=== PATIENT | male | born 1975 | race African-American/Black ===

== ENCOUNTER 2016-05-05 00:26 | Emergency (ER) | payer MEDICARE, OTHER ==
[~2016-05-05] VITALS: Ht 177.8 cm; Wt 168.3 kg
[2016-05-05] MEDS ORDERED: OLANZAPINE 5 MG TABLET ONE (00:51)
[2016-05-05] MEDS ORDERED: OLANZAPINE 5 MG/TAB.RAPDIS PO ONE (01:00)
[2016-05-05 01:24] LABS: BASOPHILS # (AUTO) 0.1 /CMM (0.0-0.2); BASOPHILS % (AUTO) 0.5 % (0.0-2.0); DIFF TOTAL % 100 %; EOSINOPHILS # (AUTO) 0.6 /CMM (0.0-0.7); EOSINOPHILS % (AUTO) 4.7 % (0.0-6.0); HEMATOCRIT 45 % (39-51); HEMOGLOBIN 14.4 g/dL (13.5-17.5); LYMPHOCYTES # (AUTO) 1.7 /CMM (0.8-4.8); LYMPHOCYTES % (AUTO) 14.1 % (20.0-44.0); MEAN CORPUSCULAR HEMOGLOBIN 26 PG (26.0-33.0); MEAN CORPUSCULAR HGB CONC 32 g/dl (31.0-36.0); MEAN CORPUSCULAR VOLUME 81 fL (80-96); MONOCYTES # (AUTO) 0.9 /CMM (0.1-1.30); MONOCYTES % (AUTO) 7.8 % (2.0-12.0); NEUTROPHILS # (AUTO) 8.6 /CMM (1.8-8.9); NEUTROPHILS % (AUTO) 72.9 % (43.0-81.0); PLATELET COUNT (AUTO) 201 /CMM (150-450); RED BLOOD CELL COUNT(AUTO) 5.59 MIL/uL (4.5-6.0); WHITE BLOOD COUNT (AUTO) 11.8 K/uL (4.3-11.0)
[2016-05-05 01:37] LABS: ANION GAP 12 (5-14); CALCIUM, SERUM 8.6 mg/dL (8.5-10.1); CARBON DIOXIDE 30 mmol/L (21-32); CHLORIDE 107 mmol/L (98-107); CREATININE 1.2 mg/dL (0.6-1.3); GFR 82 mL/min (>60); GLUCOSE 144 mg/dL (74-106); POTASSIUM 4.2 mmol/L (3.5-5.1); SODIUM SERUM 145 mmol/L (136-145); UREA NITROGEN, BLOOD 12 mg/dL (7-18)
[2016-05-05 01:43] LABS: ALANINE AMINOTRANSFERASE 28 U/L (12-78); ALBUMIN 3.6 g/dL (3.4-5.0); ASPARTATE AMINOTRANSFERASE 12 U/L (15-37); BILIRUBIN,DIRECT 0.1 mg/dL (0.0-0.2); BILIRUBIN,TOTAL 0.4 mg/dL (0.2-1.0); INDIRECT BILIRUBIN 0.3 mg/dL (0.0-1.1); TOTAL PROTEIN, SERUM 7.5 g/dL (6.4-8.2)
[2016-05-05 01:49] LABS: ACETAMINOPHEN 0 ug/ml (10-30); SALICYLATE 0.8 mg/dL (2.8-20.0)
[2016-05-05 06:01] VITALS: BP 138/74
[2016-05-05 10:13] LABS: ADD UA MICROSCOPIC NO; KETONES,URINE Negative (NEGATIVE); LEUKOCYTE ESTERASE ,URINE Negative (NEGATIVE)
[2016-05-05 10:33] LABS: CANNABINOID, URINE NEGATIVE (NEGATIVE); PHENCYCLIDINE SCREEN,URINE NEGATIVE (NEGATIVE)
== END 2016-05-05 11:38 | disposition home or self-care (01) ==
LOC: ER 00:28
DX: F20.9 Schizophrenia, unspecified (principal); R45.851 Suicidal ideations; Z91.14 Patient's other noncompliance with medication regimen; I10 Essential (primary) hypertension; J45.909 Unspecified asthma, uncomplicated
CPT/HCPCS: 36415; 80048; 80076; 80305; 80329; 81001; 85025; 99284; A4606; G0480 ×2; 81000-TC; G6039-TC; Z7610

== ENCOUNTER 2016-06-10 01:04 | Emergency (ER) | payer MEDICARE, OTHER ==
[~2016-06-10] VITALS: Ht 180.3 cm; Wt 163.7 kg
[2016-06-10] MEDS ORDERED: diphenhydrAMINE HCL 25 MG CAPSULE ONE (01:32)
[2016-06-10] MEDS ORDERED: OLANZAPINE 5 MG/TAB.RAPDIS ONE (01:33)
[2016-06-10] MEDS ORDERED: HALOPERIDOL 1 MG TABLET ONE (01:33)
[2016-06-10] MEDS ORDERED: METO25TA6 PO (01:42)
[2016-06-10] MEDS ORDERED: HALO5TAB PO (01:42)
[2016-06-10] MEDS ORDERED: LOPE-156 PO (01:42)
[2016-06-10] MEDS ORDERED: BENA20TA2 PO (01:42)
[2016-06-10] MEDS ORDERED: ZIPR60CA2 PO (01:42)
[2016-06-10] MEDS ORDERED: CIPR-262 PO (01:42)
[2016-06-10 01:59] LABS: BILIRUBIN,URINE NEGATIVE (NEGATIVE); BLOOD, URINE NEGATIVE Ery/uL (NEGATIVE); COLOR,URINE YELLOW (YELLOW); KETONES,URINE NEGATIVE (NEGATIVE); LEUKOCYTE ESTERASE ,URINE NEGATIVE (NEGATIVE); NITRITE, URINE NEGATIVE (NEGATIVE); PROTEIN,URINE 1+ mg/dl (NEGATIVE); UGLUCOSE NEGATIVE (NEGATIVE); UROBILINOGEN,URINE 0.2 EU/dL (0.2)
[2016-06-10] MEDS ORDERED: OLANZAPINE 5 MG/TAB.RAPDIS PO ONE (02:00)
[2016-06-10] MEDS ORDERED: diphenhydrAMINE HCL 25 MG CAPSULE PO ONE (02:00)
[2016-06-10] MEDS ORDERED: HALOPERIDOL 1 MG TABLET PO ONE (02:00)
[2016-06-10 02:01] LABS: BASOPHILS # (AUTO) 0.1 /CMM (0.0-0.2); BASOPHILS % (AUTO) 0.6 % (0.0-2.0); EOSINOPHILS # (AUTO) 0.4 /CMM (0.0-0.7); EOSINOPHILS % (AUTO) 4.2 % (0.0-6.0); HEMATOCRIT 42 % (39-51); HEMOGLOBIN 13.8 g/dL (13.5-17.5); LYMPHOCYTES # (AUTO) 2.7 /CMM (0.8-4.8); LYMPHOCYTES % (AUTO) 25.9 % (20.0-44.0); MEAN CORPUSCULAR HEMOGLOBIN 26 PG (26.0-33.0); MEAN CORPUSCULAR HGB CONC 33 g/dl (31.0-36.0); MEAN CORPUSCULAR VOLUME 79 fL (80-96); MONOCYTES # (AUTO) 1.8 /CMM (0.1-1.30); MONOCYTES % (AUTO) 17.3 % (2.0-12.0); NEUTROPHILS # (AUTO) 5.4 /CMM (1.8-8.9); PLATELET COUNT (AUTO) 212 /CMM (150-450); RDW COEFFICIENT OF VARIATION 14.1 (11.5-15.0); RED BLOOD CELL COUNT(AUTO) 5.37 MIL/uL (4.5-6.0); WHITE BLOOD COUNT (AUTO) 10.4 K/uL (4.3-11.0)
[2016-06-10 02:02] LABS: APPEARANCE,URINE HAZY (CLEAR)
[2016-06-10 02:04] LABS: CARBON DIOXIDE 27 mmol/L (21-32); CHLORIDE 103 mmol/L (98-107); POTASSIUM 3.4 mmol/L (3.5-5.1); SODIUM SERUM 140 mmol/L (136-145)
[2016-06-10 02:05] LABS: CANNABINOID, URINE NEGATIVE (NEGATIVE)
[2016-06-10 02:07] LABS: RBC,URINE 0-2 /HPF (0-2); WBC,URINE 0-2 /HPF (0-3)
[2016-06-10 02:08] LABS: ADD URINE CULTURE NO; BACTERIA,URINE None seen /HPF (None Seen); MUCUS,URINE Moderate /LPF (None Seen); SQUAMOUS EPITHELIAL CELL,UR Rare /HPF (None Seen)
[2016-06-10 02:09] LABS: ALANINE AMINOTRANSFERASE 46 U/L (12-78); ALBUMIN 3.5 g/dL (3.4-5.0); ALKALINE PHOSPHATASE 104 U/L (46-116); ASPARTATE AMINOTRANSFERASE 22 U/L (15-37); BILIRUBIN,DIRECT 0.1 mg/dL (0.0-0.2); BILIRUBIN,TOTAL 0.4 mg/dL (0.2-1.0); CREATININE 1.1 mg/dL (0.6-1.3); GFR 90 mL/min (>60); GLUCOSE 110 mg/dL (74-106); UREA NITROGEN, BLOOD 7 mg/dL (7-18)
[2016-06-10 02:10] LABS: ACETAMINOPHEN 0 ug/ml (10-30); ALCOHOL, BLOOD < 3 mg/dL (0-0); SALICYLATE 1.2 mg/dL (2.8-20.0)
[2016-06-10 02:13] LABS: PHENCYCLIDINE SCREEN,URINE NEGATIVE (NEGATIVE)
[2016-06-10 02:20] LABS: TOTAL PROTEIN, SERUM 7.4 g/dL (6.4-8.2)
[2016-06-10 02:37] LABS: EOSINOPHILS % (MANUAL) 2 % (0-4); LYMPHOCYTES % (MANUAL) 28 % (16-48); MONOCYTES % (MANUAL) 9 % (0-11.0); NEUTROPHILS % (MANUAL) 59 (42-76); REACTIVE LYMPHOCYTES 2 % (0-0)
[2016-06-10 02:38] LABS: PLATELET ESTIMATE ADEQUATE
[2016-06-10 05:47] VITALS: BP 146/76
--- NOTE | 2016-06-10 05:48 | NUR ---
Patient discharged to home in stable condition. Written and verbal after care instructions given. Patient verbalizes understanding of instruction. Pt ambulatory with a steady gait. VSS, NAD noted on DC. Pt given lab work for voluntary admission at [facility] Ronni Castrejon.
== END 2016-06-10 05:50 | disposition home or self-care (01) ==
LOC: ER 01:04
DX: F20.9 Schizophrenia, unspecified (principal); Z91.19 Patient's noncompliance with other medical treatment and regimen; I10 Essential (primary) hypertension; J45.909 Unspecified asthma, uncomplicated; F31.9 Bipolar disorder, unspecified; Z88.8 Allergy status to other drugs, medicaments and biological substances
CPT/HCPCS: 36415; 80048; 80076; 80305; 80329; 81001; 85025; 99284; A4606; G0480 ×2; Q0163; 81000-TC; G6039-TC; Z7610

== ENCOUNTER 2016-09-01 05:34 | Emergency (ER) | payer MEDICARE, OTHER ==
[~2016-09-01] VITALS: Ht 177.8 cm; Wt 117.9 kg
[~2016-09-01 05:34] MED LIST: BENA20TA2 PO; CIPR-262 PO; HALO5TAB PO; LOPE-156 PO; METO25TA6 PO; ZIPR60CA2 PO
--- NOTE | 2016-09-01 05:47 | NUR ---
PT BIBSELF, AMBULATORY TO ER BED 6 PT C/O THE VOICES ARE TELLING HIM TO JUMP INFRONT OF TRAFFIC BUT PT DENIES WANTING TO HURT HIMESELF OR OTHERS. PT AOX4 RR EVEN AND UNLABORED. NO SOB NOTED. NAD NOTED. NO NVD AT THIS TIME. PT GOWNED AND PLACED ON MONITOR. DR BALDWIN AT BEDSIDE FOR EVAL.
[2016-09-01] MEDS ORDERED: OLANZAPINE 5 MG TABLET ONE (05:48)
[2016-09-01] MEDS ORDERED: chlorproMAZINE HCL 25 MG TABLET ONE (05:49)
[2016-09-01] MEDS ORDERED: chlorproMAZINE HCL 25 MG TABLET PO ONE (06:00)
[2016-09-01] MEDS ORDERED: OLANZAPINE 5 MG TABLET PO ONE (06:00)
--- NOTE | 2016-09-01 06:12 | NUR ---
URINE COLLECTED. SENT TO LAB.
--- NOTE | 2016-09-01 06:15 | NUR ---
LAB AT BEDSIDE FOR BLOOD DRAW
--- NOTE | 2016-09-01 06:27 | NUR ---
PT REFUSED VS AT THIS TIME. RISK AND BENEFITS EXPLAINED X3. PT STRONGLY REFUSED.
[2016-09-01 06:32] LABS: BASOPHILS % (AUTO) 0.3 % (0.0-2.0); EOSINOPHILS # (AUTO) 0.2 /CMM (0.0-0.7); EOSINOPHILS % (AUTO) 2.3 % (0.0-6.0); HEMATOCRIT 43 % (39-51); HEMOGLOBIN 13.7 g/dL (13.5-17.5); LYMPHOCYTES # (AUTO) 1.9 /CMM (0.8-4.8); LYMPHOCYTES % (AUTO) 19.3 % (20.0-44.0); MEAN CORPUSCULAR HEMOGLOBIN 26 PG (26.0-33.0); MEAN CORPUSCULAR HGB CONC 32 g/dl (31.0-36.0); MEAN CORPUSCULAR VOLUME 81 fL (80-96); MONOCYTES # (AUTO) 0.7 /CMM (0.1-1.30); MONOCYTES % (AUTO) 6.7 % (2.0-12.0); NEUTROPHILS # (AUTO) 7.2 /CMM (1.8-8.9); NEUTROPHILS % (AUTO) 71.4 % (43.0-81.0); PLATELET COUNT (AUTO) 202 /CMM (150-450); RDW COEFFICIENT OF VARIATION 14.9 (11.5-15.0); RED BLOOD CELL COUNT(AUTO) 5.24 MIL/uL (4.5-6.0); WHITE BLOOD COUNT (AUTO) 10.1 K/uL (4.3-11.0)
[2016-09-01 06:44] LABS: CALCIUM, SERUM 8.4 mg/dL (8.5-10.1); CARBON DIOXIDE 31 mmol/L (21-32); CHLORIDE 107 mmol/L (98-107); CREATININE 1.2 mg/dL (0.6-1.3); GLUCOSE 118 mg/dL (74-106); SODIUM SERUM 142 mmol/L (136-145); UREA NITROGEN, BLOOD 11 mg/dL (7-18)
[2016-09-01 06:50] LABS: ACETAMINOPHEN 0 ug/ml (10-30); ALANINE AMINOTRANSFERASE 28 U/L (12-78); ALBUMIN 3.6 g/dL (3.4-5.0); ALCOHOL, BLOOD < 3 mg/dL (0-0); ALKALINE PHOSPHATASE 116 U/L (46-116); ASPARTATE AMINOTRANSFERASE 17 U/L (15-37); BILIRUBIN,DIRECT 0.1 mg/dL (0.0-0.2); BILIRUBIN,TOTAL 0.6 mg/dL (0.2-1.0); SALICYLATE 0.7 mg/dL (2.8-20.0); TOTAL PROTEIN, SERUM 7.1 g/dL (6.4-8.2)
--- NOTE | 2016-09-01 07:31 | NUR ---
REPORT GIVEN TO ANDRE DICK FOR C.O.C
--- NOTE | 2016-09-01 08:30 | NUR ---
Patient is resting comfortably in bed with eyes closed. Easily aroused. VSS
--- NOTE | 2016-09-01 10:25 | NUR ---
Patient is resting comfortably in bed with eyes closed. Easily aroused. VSS
[2016-09-01 11:31] LABS: APPEARANCE,URINE Clear (CLEAR); BILIRUBIN,URINE Negative (NEGATIVE); BLOOD, URINE Negative Ery/uL (NEGATIVE); COLOR,URINE Yellow (YELLOW); KETONES,URINE Negative (NEGATIVE); LEUKOCYTE ESTERASE ,URINE Negative (NEGATIVE); NITRITE, URINE Negative (NEGATIVE); PROTEIN,URINE Negative (NEGATIVE); UGLUCOSE Negative (NEGATIVE); UROBILINOGEN,URINE 0.2 EU/dL (0.2)
--- NOTE | 2016-09-01 12:30 | NUR ---
DR FLANNERY AT BS FOR AN UPDATE AND RE-EVAL.
--- NOTE | 2016-09-01 12:40 | NUR ---
CALLED CLINICIAN FOR EVAL ETA 1 HOUR
--- NOTE | 2016-09-01 13:40 | NUR ---
CALLED FOR FOOD TRAY
--- NOTE | 2016-09-01 13:56 | NUR ---
psych base ply hand at bedside Martha Addendum: 09/01/16 at 2026 by SERGIO HEMANT CLOUD SOLUTIONS ARCHITECT RAPHAEL
--- NOTE | 2016-09-01 14:00 | NUR ---
Food tray served at .
--- NOTE | 2016-09-01 16:30 | NUR ---
Patient is resting comfortably in bed with eyes closed. Easily aroused. VSS
--- NOTE | 2016-09-01 17:30 | NUR ---
Patient is resting comfortably in bed with eyes closed. Easily aroused. VSS
--- NOTE | 2016-09-01 19:09 | NUR ---
report given to ANDRE Solorzano for EVA
--- NOTE | 2016-09-01 21:06 | NUR ---
pt ambulated to er restroom. nad noted, will continue to monitor
--- NOTE | 2016-09-01 22:03 | NUR ---
gave patient sandwich and water
--- NOTE | 2016-09-02 01:29 | NUR ---
pt resting in er bed, nad noted, skin warm and dry, will conitnue to monitor
[2016-09-02] MEDS ORDERED: OLANZAPINE 5 MG TABLET ONE (05:39)
[2016-09-02] MEDS ORDERED: OLANZAPINE 5 MG TABLET PO ONE (06:00)
[2016-09-02 06:05] VITALS: BP 134/85
== END 2016-09-02 06:05 | disposition home or self-care (01) ==
LOC: ER 05:35
DX: F20.9 Schizophrenia, unspecified (principal); I10 Essential (primary) hypertension; J45.909 Unspecified asthma, uncomplicated; Z88.8 Allergy status to other drugs, medicaments and biological substances; Z91.19 Patient's noncompliance with other medical treatment and regimen
CPT/HCPCS: 36415; 80048-TC; 80076-TC; 80305; 81000-TC; 85025-TC; A4606; G0480; Q0161; Z7610

== ENCOUNTER 2017-02-26 16:23 | Emergency (ER) | payer MEDICARE, OTHER ==
[~2017-02-26] VITALS: Ht 182.9 cm; Wt 136.1 kg
[2017-02-26 16:30] VITALS: BP 144/81
[2017-02-26 19:44] LABS: BASOPHILS % (AUTO) 0.4 % (0.0-2.0); EOSINOPHILS # (AUTO) 0.2 /CMM (0.0-0.7); EOSINOPHILS % (AUTO) 2.1 % (0.0-6.0); HEMATOCRIT 46 % (39-51); HEMOGLOBIN 15.4 g/dL (13.5-17.5); LYMPHOCYTES # (AUTO) 2.2 /CMM (0.8-4.8); LYMPHOCYTES % (AUTO) 20.1 % (20.0-44.0); MEAN CORPUSCULAR HEMOGLOBIN 27 PG (26.0-33.0); MEAN CORPUSCULAR HGB CONC 34 g/dl (31.0-36.0); MEAN CORPUSCULAR VOLUME 79 fL (80-96); MONOCYTES # (AUTO) 0.8 /CMM (0.1-1.30); MONOCYTES % (AUTO) 7.2 % (2.0-12.0); NEUTROPHILS % (AUTO) 70.2 % (43.0-81.0); PLATELET COUNT (AUTO) 255 /CMM (150-450); RDW COEFFICIENT OF VARIATION 13.6 (11.5-15.0); RED BLOOD CELL COUNT(AUTO) 5.76 MIL/uL (4.5-6.0); WHITE BLOOD COUNT (AUTO) 11.2 K/uL (4.3-11.0)
[2017-02-26 19:48] LABS: APPEARANCE,URINE Clear (CLEAR); BILIRUBIN,URINE Negative (NEGATIVE); BLOOD, URINE Negative Ery/uL (NEGATIVE); COLOR,URINE Yellow (YELLOW); KETONES,URINE Negative (NEGATIVE); LEUKOCYTE ESTERASE ,URINE Negative (NEGATIVE); NITRITE, URINE Negative (NEGATIVE); PH,URINE 5.5 (5.0-8.0); PROTEIN,URINE Negative (NEGATIVE); UGLUCOSE Negative (NEGATIVE); UROBILINOGEN,URINE 0.2 EU/dL (0.2)
[2017-02-26 19:59] LABS: ALANINE AMINOTRANSFERASE 27 U/L (12-78); ALBUMIN 4.2 g/dL (3.4-5.0); ALCOHOL, BLOOD 4 mg/dL (0-0); ALKALINE PHOSPHATASE 121 U/L (46-116); ASPARTATE AMINOTRANSFERASE 18 U/L (15-37); BILIRUBIN,DIRECT 0.2 mg/dL (0.0-0.2); CALCIUM, SERUM 8.9 mg/dL (8.5-10.1); CARBON DIOXIDE 26 mmol/L (21-32); CHLORIDE 101 mmol/L (98-107); CREATININE 1.2 mg/dL (0.6-1.3); GLUCOSE 109 mg/dL (74-106); SODIUM SERUM 136 mmol/L (136-145); TOTAL PROTEIN, SERUM 8.2 g/dL (6.4-8.2); UREA NITROGEN, BLOOD 11 mg/dL (7-18)
[2017-02-26 20:01] LABS: ACETAMINOPHEN < 2 ug/ml (10-30); SALICYLATE 2.5 mg/dL (2.8-20.0)
== END 2017-02-26 20:11 | disposition home or self-care (01) ==
LOC: ER 16:23
DX: Z02.89 Encounter for other administrative examinations (principal); F20.9 Schizophrenia, unspecified; H10.89 Other conjunctivitis; I10 Essential (primary) hypertension; J45.909 Unspecified asthma, uncomplicated; Z88.8 Allergy status to other drugs, medicaments and biological substances
CPT/HCPCS: 36415; 80048; 80076; 80305; 80329; 81001; 85025; 99284; A4606; G0480 ×2; 81000-TC; Z7610

== ENCOUNTER 2017-03-03 12:25 | Emergency (ER) | payer MEDICARE, OTHER ==
--- NOTE | 2017-03-03 12:35 | NUR ---
CALLED FOR TRIAGE, PT PHYSICALLY NOT IN WAITING ROOM
--- NOTE | 2017-03-03 12:45 | NUR ---
CALLED FOR TRIAGE, PT PHYSICALLY NOT IN WAITING ROOM
== END 2017-03-03 13:44 | disposition left against medical advice (07) ==
LOC: ER 12:27
DX: Z53.21 Procedure and treatment not carried out due to patient leaving prior to being seen by health care provider (principal)

== ENCOUNTER 2018-08-16 18:55 | Emergency (ER) | payer MEDICARE, OTHER ==
[~2018-08-16] VITALS: Ht 180.3 cm; Wt 180.5 kg
[~2018-08-16 18:55] MED LIST changes: -BENA20TA2 PO; +BENA20TA9 PO
--- NOTE | 2018-08-16 19:14 | NUR ---
[id number] FR [facility] C/O AUDITORY HALLUCINATIONS TO OD ON MEDS. PT HAS BEEN SEEN HERE BEFORE FOR SAME ISSUE. ON MONITOR AND MADE COMFORTABLE. READY FOR EVAL.
[2018-08-16 19:33] LABS: BASOPHILS # (AUTO) 0.1 /CMM (0.0-0.2); BASOPHILS % (AUTO) 0.5 % (0.0-2.0); EOSINOPHILS % (AUTO) 2.4 % (0.0-6.0); HEMATOCRIT 44 % (39-51); HEMOGLOBIN 14.4 g/dL (13.5-17.5); LYMPHOCYTES % (AUTO) 19.4 % (20.0-44.0); MEAN CORPUSCULAR HGB CONC 33 g/dl (31.0-36.0); MEAN CORPUSCULAR VOLUME 83 fL (80-96); MONOCYTES # (AUTO) 0.9 /CMM (0.1-1.30); MONOCYTES % (AUTO) 8.1 % (2.0-12.0); NEUTROPHILS # (AUTO) 7.3 /CMM (1.8-8.9); NEUTROPHILS % (AUTO) 69.6 % (43.0-81.0); PLATELET COUNT (AUTO) 186 /CMM (150-450); RED BLOOD CELL COUNT(AUTO) 5.32 MIL/uL (4.5-6.0); WHITE BLOOD COUNT (AUTO) 10.5 K/uL (4.3-11.0)
[2018-08-16 19:49] LABS: CALCIUM, SERUM 8.7 mg/dL (8.5-10.1); CARBON DIOXIDE 29 mmol/L (21-32); CHLORIDE 104 mmol/L (98-107); CREATININE 1.1 mg/dL (0.6-1.3); GLUCOSE 107 mg/dL (74-106); POTASSIUM 4.1 mmol/L (3.5-5.1); SODIUM SERUM 139 mmol/L (136-145); UREA NITROGEN, BLOOD 9 mg/dL (7-18)
[2018-08-16 20:05] LABS: ACETAMINOPHEN 0 ug/ml (10-30); ALANINE AMINOTRANSFERASE 36 U/L (12-78); ALBUMIN 3.6 g/dL (3.4-5.0); ALCOHOL, BLOOD < 3 mg/dL (0-0); ALKALINE PHOSPHATASE 114 U/L (46-116); ASPARTATE AMINOTRANSFERASE 19 U/L (15-37); BILIRUBIN,DIRECT 0.1 mg/dL (0.0-0.2); BILIRUBIN,TOTAL 0.6 mg/dL (0.2-1.0); SALICYLATE 2.7 mg/dL (2.8-20.0); TOTAL PROTEIN, SERUM 6.9 g/dL (6.4-8.2)
--- NOTE | 2018-08-16 21:00 | NUR ---
URINE COLLECTED AND SENT TO STAT LAB
[2018-08-16 21:20] LABS: APPEARANCE,URINE Clear (CLEAR); BILIRUBIN,URINE Negative (NEGATIVE); BLOOD, URINE Negative Ery/uL (NEGATIVE); COLOR,URINE Yellow (YELLOW); KETONES,URINE Negative (NEGATIVE); LEUKOCYTE ESTERASE ,URINE Negative (NEGATIVE); NITRITE, URINE Negative (NEGATIVE); PH,URINE 7.5 (5.0-8.0); PROTEIN,URINE Negative (NEGATIVE); UGLUCOSE Negative (NEGATIVE); UROBILINOGEN,URINE 0.2 EU/dL (0.2)
[2018-08-16 21:27] VITALS: BP 140/79
--- NOTE | 2018-08-16 21:41 | NUR ---
Patient is resting comfortably in bed with eyes closed. Easily aroused. VSS
--- NOTE | 2018-08-16 22:36 | NUR ---
RAPHAEL POWELL CRISIS TEAM AT BEDSIDE FOR EVAL.
--- NOTE | 2018-08-16 23:54 | NUR ---
[facility] ACCEPTED PT. DR HIDALGO IS ADMITTING. GIVE REPORT AT [phone]. ASK FOR THE UNIT THAT PT WILL BE GOING TO.
--- NOTE | 2018-08-16 23:59 | NUR ---
CALLED [facility] FOR A BLS TRANSPORT TO [facility]. [id number] MIN TRIP#[phone]
--- NOTE | 2018-08-17 | NUR ---
REPORT GIVEN TO ANDRE BERNAL AT [facility] FOR UNIT 2
--- NOTE | 2018-08-17 01:10 | NUR ---
PT REFUSED TRANSPORTATION TO [facility]. PT STATES "I'M ONLY GOING TO [place] OR [facility]". INFORMED PT BEDS ARE NOT AVAILABLE. PT ANGRY AND VERBALLY ABUSIVE TO STAFF. PT REQUESTING TO BEEN SEEN BY ELECTRICAL MANUFACTURING ENGINEER OR REEVALUATED BY CRISIS TEAM. AWARE.
--- NOTE | 2018-08-17 07:48 | NUR ---
PT VERBALLY ABUSIVE TO STAFF, REFUSES TO BE CONNECTED TO BP CUFF AND PULSE OX
--- NOTE | 2018-08-17 08:49 | NUR ---
OFFERED FOOD TRAY. PT VERBALLY ABUSIVE. REFUSES FOOD TRAY.
--- NOTE | 2018-08-17 10:13 | NUR ---
ROGERIO CALLED AT [facility],ACCEPTED LAST NIGHT BUT REFUSED TO GO THERE. HE WANTED TO GO TO [facility] BUT NO BED WAS AVAILABLE.
--- NOTE | 2018-08-17 10:16 | NUR ---
PATIENT CHANGED INTO HIS STREET CLOTHES, CARRIED HIS DUFFLE BAG WALKED OUT OF THE ER. ROGERIO, INTAKE AT [facility]. Addendum: 08/17/18 at 1018 by POLINA PATIENT CHANGED INTO HIS STREET CLOTHES, CARRIED HIS DUFFLE BAG WALKED OUT OF THE ER. ADAM, INTAKE AT [facility] INFORMED
== END 2018-08-17 10:20 | disposition home or self-care (01) ==
LOC: ER 19:00
DX: R45.851 Suicidal ideations (principal); J45.909 Unspecified asthma, uncomplicated; I10 Essential (primary) hypertension; Z88.8 Allergy status to other drugs, medicaments and biological substances; Z59.0 Homelessness; Z79.899 Other long term (current) drug therapy
CPT/HCPCS: 36415; 80048; 80076; 80305; 80307; 80329; 81001; 85025; 99284; G0480; 81000-TC

== ENCOUNTER 2018-08-17 20:13 | Emergency (ER) | payer OTHER ==
[~2018-08-17] VITALS: Ht 180.3 cm; Wt 217.7 kg
[2018-08-17 20:32] VITALS: BP 134/71
--- NOTE | 2018-08-17 20:50 | NUR ---
PT REFUSED BLOOD DRAW. PT STATED THAT HE IS NOT HERE FOR PSYCHIATRIC REASONS, BUT NEEDS A MEDICATION REFILL FOR FLOMAX.
--- NOTE | 2018-08-17 21:00 | NUR ---
Bryan MENSAH NP IS SPEAKING TO THE PT.
--- NOTE | 2018-08-17 21:01 | NUR ---
PT STATED THAT HE WAS HOMELESS AND REC'D SOCKS, HYGIENE SUPPLIES, ETC.
--- NOTE | 2018-08-17 21:07 | NUR ---
PT REC'D A SANDWICH AND JUICE
--- NOTE | 2018-08-17 21:28 | NUR ---
Patient discharged to home in stable condition. Written and verbal after care instructions given. Patient verbalizes understanding of instruction AND RX. PT AMBULATED OUT WITH HIS SHOPPING CART FULL OF [employer]. PT IS WAITING IN THE LOBBY FOR A TAP CARD. PT IS HOMELESS AND REC'D THE HOMELESS RESOURCE PACKAGE. PT IS REFUSING LONG-TERM PLACEMENT. VSS. NAD NOTED.
--- NOTE | 2018-08-17 22:05 | NUR ---
PT REC'D A TAP CARD.
== END 2018-08-17 22:05 | disposition home or self-care (01) ==
LOC: ER 20:13
DX: Z51.81 Encounter for therapeutic drug level monitoring (principal); N40.0 Benign prostatic hyperplasia without lower urinary tract symptoms; I10 Essential (primary) hypertension; F32.9 Major depressive disorder, single episode, unspecified; J45.909 Unspecified asthma, uncomplicated; F20.9 Schizophrenia, unspecified; Z59.0 Homelessness; Z88.8 Allergy status to other drugs, medicaments and biological substances

== ENCOUNTER 2018-08-18 08:46 | Emergency (ER) | payer OTHER ==
[~2018-08-18] VITALS: Ht 180.3 cm; Wt 179.2 kg
[2018-08-18 08:53] VITALS: BP 148/93
--- NOTE | 2018-08-18 08:53 | NUR ---
PT SELF PRESENTS TO ED. AMBULATORY W/ MULTIPLE COMPLAINTS. STATES HAVING SHORTNESS OF BREATH, UNKNOWN ONSET. SATTING 100% ON RA. ALSO C/O HEARING VOICES BUT STATING "IM NOT SUICIDAL." ROOMED TO ED BED 12. VSS. AWAITING ERMD EVAL.
--- NOTE | 2018-08-18 09:00 | NUR ---
DR CHRISTIANSON AT BEDSIDE FOR EVAL.
[2018-08-18 09:24] LABS: BASOPHILS % (AUTO) 0.4 % (0.0-2.0); EOSINOPHILS % (AUTO) 1.9 % (0.0-6.0); HEMATOCRIT 46 % (39-51); HEMOGLOBIN 15.2 g/dL (13.5-17.5); LYMPHOCYTES # (AUTO) 1.6 /CMM (0.8-4.8); LYMPHOCYTES % (AUTO) 15.2 % (20.0-44.0); MEAN CORPUSCULAR HGB CONC 33 g/dl (31.0-36.0); MEAN CORPUSCULAR VOLUME 84 fL (80-96); MONOCYTES # (AUTO) 0.7 /CMM (0.1-1.30); NEUTROPHILS # (AUTO) 7.8 /CMM (1.8-8.9); NEUTROPHILS % (AUTO) 75.5 % (43.0-81.0); PLATELET COUNT (AUTO) 201 /CMM (150-450); RED BLOOD CELL COUNT(AUTO) 5.53 MIL/uL (4.5-6.0); WHITE BLOOD COUNT (AUTO) 10.3 K/uL (4.3-11.0)
[2018-08-18 09:31] LABS: CARBON DIOXIDE 26 mmol/L (21-32); CHLORIDE 104 mmol/L (98-107); GLUCOSE 107 mg/dL (74-106); POTASSIUM 3.8 mmol/L (3.5-5.1); SODIUM SERUM 139 mmol/L (136-145); UREA NITROGEN, BLOOD 12 mg/dL (7-18)
[2018-08-18 09:43] LABS: ALANINE AMINOTRANSFERASE 34 U/L (12-78); ALBUMIN 3.9 g/dL (3.4-5.0); ALKALINE PHOSPHATASE 130 U/L (46-116); ASPARTATE AMINOTRANSFERASE 17 U/L (15-37); B-TYPE NATRIURETIC PEPTIDE 14 PG/ML (0-125); BILIRUBIN,DIRECT 0.1 mg/dL (0.0-0.2); BILIRUBIN,TOTAL 0.4 mg/dL (0.2-1.0); TOTAL PROTEIN, SERUM 7.4 g/dL (6.4-8.2)
--- NOTE | 2018-08-18 10:17 | NUR ---
CALLED RAPHAEL FOR PSYCH EVAL, LEFT A MESSAGE.
--- NOTE | 2018-08-18 11:36 | NUR ---
CALLED RAPHAEL FOR PSYCH EVAL, LEFT MESSAGE
--- NOTE | 2018-08-18 12:43 | NUR ---
PT ELOPED FROM EMERGENCY DEPT, DR CHRISTIANSON IS AWARE.
== END 2018-08-18 12:46 | disposition left against medical advice (07) ==
LOC: ER 08:48
DX: R06.02 Shortness of breath (principal); F23 Brief psychotic disorder; I10 Essential (primary) hypertension; J45.909 Unspecified asthma, uncomplicated; Z88.8 Allergy status to other drugs, medicaments and biological substances; Z79.899 Other long term (current) drug therapy
CPT/HCPCS: 36415; 71045-TC; 80048-TC; 80076-TC; 80305; 83880; 84484-TC; 85025-TC; 85730-TC

== ENCOUNTER 2018-08-18 23:47 | Emergency (ER) | payer OTHER ==
[~2018-08-18] VITALS: Ht 180.3 cm; Wt 181.4 kg
--- NOTE | 2018-08-19 00:42 | NUR ---
PT CALLED IN WAITING ROOM, PT STATES, "I DONT WANT TO COME IN, ILL COME BACK LATER."
--- NOTE | 2018-08-19 01:45 | NUR ---
BIB SELF. AAOX4. NO RESP DISTRESS NOTED. AMBULATORY. C/O SOB X 1 WEEK, BEEN USING INHALER BUT NO RELIEF. NO NOTED RESP DISTRESS UPON PRESENTATION AND ASSESSMENT. TO ER BED 14. AWAITING MD ORDERS.
[2018-08-19] MEDS ORDERED: ALBUTEROL FS 2.5 MG/3 ML VIAL.NEB ONE (01:56)
[2018-08-19] MEDS ORDERED: ALBUTEROL FS 2.5 MG/0.5 ML VIAL.NEB NEB ONE (02:00)
--- NOTE | 2018-08-19 02:00 | NUR ---
RT AT BEDSIDE FOR TX
[2018-08-19 04:44] VITALS: BP 147/78
--- NOTE | 2018-08-19 04:44 | NUR ---
Patient given written and verbal discharge instructions. Patient verbalizes understanding of instructions. Patient is ambulatory with steady gait. Refuses offer of snf placement. Patient given list of available shelters in surrounding area.
== END 2018-08-19 04:46 | disposition home or self-care (01) ==
LOC: ER 23:50
DX: R05 Cough (principal); I10 Essential (primary) hypertension; F20.9 Schizophrenia, unspecified; F17.200 Nicotine dependence, unspecified, uncomplicated; Z88.8 Allergy status to other drugs, medicaments and biological substances; Z79.899 Other long term (current) drug therapy
CPT/HCPCS: 71045-TC

== ENCOUNTER 2018-08-19 22:31 | Emergency (ER) | payer OTHER ==
[~2018-08-19] VITALS: Ht 180.3 cm; Wt 181.4 kg
--- NOTE | 2018-08-20 02:52 | NUR ---
PT BIBSELF C/O GENERALIZED BODY ACHES. PT ALSO C/O AUDITORY HALLUCINATIONS. DENIES SI/HI AT THIS TIME. PT HOMELESS AND REQUESTING TO BE SEEN BY COAGULATING OPERATOR. PT AAOX4. RESPIRATIONS EVEN AND UNLABORED. SKIN INTACT. ABLE TO AMBULATE WITH STEADY GAIT. NO ACUTE DISTRESS NOTED AT THIS TIME
--- NOTE | 2018-08-20 03:15 | NUR ---
DRY ICE MACHINE OPERATOR AT BEDSIDE FOR BLOOD DRAW
--- NOTE | 2018-08-20 03:30 | NUR ---
PT REFUSING BLOOD DRAW, MD AWARE. INFORMED PT HE WILL BE UNABLE TO BE EVALUATED BY CRISIS TEAM WITHOUT BLOOD WORK. PT BECAME UPSET AND VERBALLY AGGRESSIVE, PT STATES "I WANT TO GIVE MY VEINS A REST, LOOK AT MY BLOOD WORK FROM THE OTHER DAY". MD AT BEDSIDE AT EXPLAINED PT WILL BE DISCHARGED. PT AGREED TO BEING DISCHARGED. REFUSED ALL RESOURCES AND AFTER CARE INSTRUCTIONS
[2018-08-20 03:54] VITALS: BP 147/74
== END 2018-08-20 03:54 | disposition home or self-care (01) ==
LOC: ER 22:31
DX: F20.9 Schizophrenia, unspecified (principal); I10 Essential (primary) hypertension; J45.909 Unspecified asthma, uncomplicated; F17.200 Nicotine dependence, unspecified, uncomplicated; Z88.8 Allergy status to other drugs, medicaments and biological substances

== ENCOUNTER 2018-08-21 07:02 | Emergency (ER) | payer OTHER ==
[~2018-08-21] VITALS: Ht 180.3 cm; Wt 181.4 kg
--- NOTE | 2018-08-21 07:22 | NUR ---
C/C HEARING VOICES "THEY ARE TELLING ME IM DUMB". -SI, -HI. PT C/O BILAT FOOT SWELLING. PATIENT A/OX4, BREATHING EVEN AND UNLABORED, NO SOB NOTED. DENIES PAIN OR DISCOMFORT AT THIS TIME. REFUSED TO BE ATTACHED ON THE MONITOR. SAFETY PRECAUTION OBSERVED. NEEDS ATTENDED.
[2018-08-21] MEDS ORDERED: OLANZAPINE 5 MG TABLET ONE (07:25)
[2018-08-21] MEDS ORDERED: OLANZAPINE 5 MG TABLET PO ONE (07:30)
--- NOTE | 2018-08-21 07:41 | NUR ---
PATIENT REFUSED TO TAKE ZYPREXA AT THIS TIME. EXPLAINED RISKS AND BENEFITS. DR. COLORADO MADE AWARE.
[2018-08-21 08:00] LABS: BASOPHILS % (AUTO) 0.4 % (0.0-2.0); EOSINOPHILS % (AUTO) 2.9 % (0.0-6.0); HEMATOCRIT 45 % (39-51); HEMOGLOBIN 14.5 g/dL (13.5-17.5); LYMPHOCYTES # (AUTO) 1.6 /CMM (0.8-4.8); LYMPHOCYTES % (AUTO) 16.1 % (20.0-44.0); MEAN CORPUSCULAR HGB CONC 33 g/dl (31.0-36.0); MEAN CORPUSCULAR VOLUME 83 fL (80-96); MONOCYTES # (AUTO) 0.7 /CMM (0.1-1.30); MONOCYTES % (AUTO) 7.3 % (2.0-12.0); NEUTROPHILS # (AUTO) 7.4 /CMM (1.8-8.9); NEUTROPHILS % (AUTO) 73.3 % (43.0-81.0); PLATELET COUNT (AUTO) 194 /CMM (150-450); RED BLOOD CELL COUNT(AUTO) 5.37 MIL/uL (4.5-6.0); WHITE BLOOD COUNT (AUTO) 10.1 K/uL (4.3-11.0)
[2018-08-21 08:04] LABS: CALCIUM, SERUM 8.4 mg/dL (8.5-10.1); CARBON DIOXIDE 28 mmol/L (21-32); CHLORIDE 104 mmol/L (98-107); CREATININE 1.2 mg/dL (0.6-1.3); GLUCOSE 168 mg/dL (74-106); POTASSIUM 3.9 mmol/L (3.5-5.1); SODIUM SERUM 138 mmol/L (136-145); UREA NITROGEN, BLOOD 9 mg/dL (7-18)
[2018-08-21 08:10] LABS: ACETAMINOPHEN < 2 ug/ml (10-30); ALANINE AMINOTRANSFERASE 33 U/L (12-78); ALBUMIN 3.5 g/dL (3.4-5.0); ALCOHOL, BLOOD < 3 mg/dL (0-0); ALKALINE PHOSPHATASE 116 U/L (46-116); ASPARTATE AMINOTRANSFERASE 16 U/L (15-37); BILIRUBIN,DIRECT 0.1 mg/dL (0.0-0.2); BILIRUBIN,TOTAL 0.4 mg/dL (0.2-1.0); SALICYLATE 3.2 mg/dL (2.8-20.0); TOTAL PROTEIN, SERUM 6.8 g/dL (6.4-8.2)
--- NOTE | 2018-08-21 08:15 | NUR ---
CALLED [facility] [phone]
--- NOTE | 2018-08-21 09:32 | NUR ---
CALLED [facility] AGAIN, LEFT A VOICEMAIL
--- NOTE | 2018-08-21 11:55 | NUR ---
CRISIS SUPERVISOR PHOTOSTAT MARTHA SCHAFFER AT BEDSIDE
--- NOTE | 2018-08-21 11:59 | NUR ---
REFUSED TO SIGN HOMELESS WAIVER FORM
--- NOTE | 2018-08-21 13:07 | NUR ---
Rx provided. Patient discharged in stable condition. Written and verbal after care instructions given. Patient verbalizes understanding of instruction. Refused to sign homeless discharge waiver form, refused tap card and food.
[2018-08-21 13:08] VITALS: BP 136/80
== END 2018-08-21 13:08 | disposition home or self-care (01) ==
LOC: ER 07:02
DX: F20.9 Schizophrenia, unspecified (principal); I10 Essential (primary) hypertension; J45.909 Unspecified asthma, uncomplicated; F17.200 Nicotine dependence, unspecified, uncomplicated; Z88.8 Allergy status to other drugs, medicaments and biological substances; Z79.899 Other long term (current) drug therapy
CPT/HCPCS: 36415; 80048; 80076; 80307; 80329; 85025; 99284; G0480

== ENCOUNTER 2018-08-22 09:27 | Emergency (ER) | payer OTHER ==
[~2018-08-22] VITALS: Ht 180.3 cm; Wt 181.4 kg
[2018-08-22 09:44] VITALS: BP 139/73
--- NOTE | 2018-08-22 09:44 | NUR ---
PT BIB SELF C/O Hearing Voices "I hear chanting voices I am NOT suicidal-Here for psych EVAL, PT IS AAOX4, NOT IN RESPIRATORY DISTRESS, V/S STABLE, KEPT RESTED AND COMFORTABLE, WILL CONTINUE TO MONITOR.
--- NOTE | 2018-08-22 10:10 | NUR ---
URINE SPECIMEN COLLECTED AND SENT TO LAB.
--- NOTE | 2018-08-22 10:20 | NUR ---
SEEN AND EXAMINED BY DR. PEREZ.
--- NOTE | 2018-08-22 10:30 | NUR ---
ER PHLEB AT BEDSIDE FOR BLOOD DRAW.
[2018-08-22 10:36] LABS: BASOPHILS % (AUTO) 0.5 % (0.0-2.0); EOSINOPHILS % (AUTO) 3.3 % (0.0-6.0); HEMATOCRIT 44 % (39-51); HEMOGLOBIN 14.6 g/dL (13.5-17.5); LYMPHOCYTES # (AUTO) 1.8 /CMM (0.8-4.8); LYMPHOCYTES % (AUTO) 19.6 % (20.0-44.0); MEAN CORPUSCULAR HGB CONC 33 g/dl (31.0-36.0); MEAN CORPUSCULAR VOLUME 83 fL (80-96); MONOCYTES # (AUTO) 0.9 /CMM (0.1-1.30); MONOCYTES % (AUTO) 9.2 % (2.0-12.0); NEUTROPHILS # (AUTO) 6.3 /CMM (1.8-8.9); NEUTROPHILS % (AUTO) 67.4 % (43.0-81.0); PLATELET COUNT (AUTO) 193 /CMM (150-450); RED BLOOD CELL COUNT(AUTO) 5.31 MIL/uL (4.5-6.0); WHITE BLOOD COUNT (AUTO) 9.3 K/uL (4.3-11.0)
[2018-08-22 10:37] LABS: APPEARANCE,URINE Clear (CLEAR); BILIRUBIN,URINE Negative (NEGATIVE); BLOOD, URINE Negative Ery/uL (NEGATIVE); COLOR,URINE Light yellow (YELLOW); KETONES,URINE Negative (NEGATIVE); LEUKOCYTE ESTERASE ,URINE Negative (NEGATIVE); NITRITE, URINE Negative (NEGATIVE); PROTEIN,URINE Negative (NEGATIVE); UGLUCOSE Negative (NEGATIVE); UROBILINOGEN,URINE 0.2 EU/dL (0.2)
[2018-08-22 10:46] LABS: CARBON DIOXIDE 29 mmol/L (21-32); CHLORIDE 108 mmol/L (98-107); CREATININE 1.2 mg/dL (0.6-1.3); GLUCOSE 123 mg/dL (74-106); POTASSIUM 4.7 mmol/L (3.5-5.1); SODIUM SERUM 143 mmol/L (136-145); UREA NITROGEN, BLOOD 10 mg/dL (7-18)
[2018-08-22 10:52] LABS: ALANINE AMINOTRANSFERASE 35 U/L (12-78); ALBUMIN 3.6 g/dL (3.4-5.0); ALKALINE PHOSPHATASE 114 U/L (46-116); ASPARTATE AMINOTRANSFERASE 20 U/L (15-37); BILIRUBIN,DIRECT 0.1 mg/dL (0.0-0.2); BILIRUBIN,TOTAL 0.4 mg/dL (0.2-1.0); SALICYLATE 4.4 mg/dL (2.8-20.0); TOTAL PROTEIN, SERUM 6.9 g/dL (6.4-8.2)
[2018-08-22 10:55] LABS: ACETAMINOPHEN 0 ug/ml (10-30)
[2018-08-22 11:10] LABS: ALCOHOL, BLOOD < 3 mg/dL (0-0)
--- NOTE | 2018-08-22 11:28 | NUR ---
Patient eloped from facility. ER MD notified.
== END 2018-08-22 11:30 | disposition left against medical advice (07) ==
LOC: ER 09:31
DX: F23 Brief psychotic disorder (principal); I10 Essential (primary) hypertension; J45.909 Unspecified asthma, uncomplicated; F17.200 Nicotine dependence, unspecified, uncomplicated; Z88.8 Allergy status to other drugs, medicaments and biological substances; Z79.899 Other long term (current) drug therapy
CPT/HCPCS: 36415; 80048; 80076; 80305; 80307; 80329; 81001; 85025; 99284; G0480; 81000-TC

== ENCOUNTER 2018-08-23 01:46 | Emergency (ER) | payer OTHER | END 2018-08-23 02:17 | disposition left against medical advice (07) | LOC: ER 01:48 | DX: Z53.21 Procedure and treatment not carried out due to patient leaving prior to being seen by health care provider (principal) ==

== ENCOUNTER 2018-08-24 02:30 | Emergency (ER) | payer OTHER | END 2018-08-24 03:42 | disposition home or self-care (01) | LOC: ER 02:34 | DX: Z76.0 Encounter for issue of repeat prescription (principal); I10 Essential (primary) hypertension; J45.909 Unspecified asthma, uncomplicated; F20.9 Schizophrenia, unspecified; F17.200 Nicotine dependence, unspecified, uncomplicated; Z88.8 Allergy status to other drugs, medicaments and biological substances; Z79.82 Long term (current) use of aspirin ==

== ENCOUNTER 2018-08-25 13:12 | Emergency (ER) | payer OTHER ==
[~2018-08-25] VITALS: Ht 180.3 cm; Wt 181.9 kg
--- NOTE | 2018-08-25 15:13 | NUR ---
PT BIB RA 99 FROM A [facility]AS STATION WITH A C/O LT WRIST PAIN. PT IS AMBULATORY WITH A STEADY GAIT. NO DEFORMITY NOTED. RESP EVEN AND UNLABORED. PT IS HOMELESS.
--- NOTE | 2018-08-25 15:30 | NUR ---
PT REC'D A LUNCH TRAY AND IS TOLERATING PO WELL.
[2018-08-25 15:45] LABS: BASOPHILS # (AUTO) 0.1 /CMM (0.0-0.2); BASOPHILS % (AUTO) 0.6 % (0.0-2.0); EOSINOPHILS % (AUTO) 3.5 % (0.0-6.0); HEMATOCRIT 45 % (39-51); LYMPHOCYTES # (AUTO) 2.1 /CMM (0.8-4.8); LYMPHOCYTES % (AUTO) 20.8 % (20.0-44.0); MEAN CORPUSCULAR HGB CONC 33 g/dl (31.0-36.0); MEAN CORPUSCULAR VOLUME 83 fL (80-96); MONOCYTES # (AUTO) 0.9 /CMM (0.1-1.30); NEUTROPHILS # (AUTO) 6.5 /CMM (1.8-8.9); NEUTROPHILS % (AUTO) 66.1 % (43.0-81.0); PLATELET COUNT (AUTO) 184 /CMM (150-450); RED BLOOD CELL COUNT(AUTO) 5.44 MIL/uL (4.5-6.0); WHITE BLOOD COUNT (AUTO) 9.9 K/uL (4.3-11.0)
--- NOTE | 2018-08-25 15:53 | NUR ---
PT WAS SEEN BY [facility] LOW EMISSION AUTOMOBILE DESIGNER. HOMELESS WAIVER IS SIGNED AND IN THE CHART. PT REFUSED PLACEMENT IN A CARE HOME, BUT TOOK THE HOMELESS RESOURCE PACKAGE FROM [facility].
[2018-08-25 15:54] LABS: APPEARANCE,URINE Clear (CLEAR); BILIRUBIN,URINE Negative (NEGATIVE); BLOOD, URINE Trace-intact Ery/uL (NEGATIVE); COLOR,URINE Yellow (YELLOW); KETONES,URINE Negative (NEGATIVE); LEUKOCYTE ESTERASE ,URINE Negative (NEGATIVE); NITRITE, URINE Negative (NEGATIVE); PROTEIN,URINE Negative (NEGATIVE); UGLUCOSE Negative (NEGATIVE); UROBILINOGEN,URINE 0.2 EU/dL (0.2)
[2018-08-25 15:56] LABS: CALCIUM, SERUM 9.2 mg/dL (8.5-10.1); CARBON DIOXIDE 31 mmol/L (21-32); CHLORIDE 104 mmol/L (98-107); CREATININE 1.1 mg/dL (0.6-1.3); GLUCOSE 114 mg/dL (74-106); POTASSIUM 4.4 mmol/L (3.5-5.1); SODIUM SERUM 143 mmol/L (136-145); UREA NITROGEN, BLOOD 7 mg/dL (7-18)
--- NOTE | 2018-08-25 15:56 | NUR ---
Social service consult requested by ANDRE Brock due to pt. being homeless. Pt. is a 43 year old male who came to [facility] complaining of wrist pain. Pt. has been coming to [facility] more than seven times this month with some complaint or other. GILBERTO met with pt. bedside. Pt. is alert and oriented x 4. Pt. is obese and appears disheveled. Pt is ambulatory. Pt. has his shopping cart bedside. Pt. is sitting on his bed. Pt. appears manipulative. Pt. states he has been homeless for the past 5 years and has been going all over the [facility]. GILBERTO offered pt. retirement placement, however pt. declined. Pt. receives $1015 in [employer] monies per month and informed SW he is waiting to get his monthly check on August 31, 2018. GILBERTO asked pt. if he would like a referral to an independent living which costs $650. Pt. declined stating he has an independent living he can go to when he has his money. Pt. has history of Schizophrenia and has been hospitalized several times. Pt stated he has not been on his medications for the past 2 months and wants to see a psychiatrist. GILBERTO inquired with pt. if he has a psychiatrist out in the community. Pt. stated, " I don't." SW encouraged pt. to see a psychiatrist at [facility] and gave him referrals to [facility] and other mental health facilities. SW encouraged him to follow up with a psychiatrist at one of the clinics referred to him and not come to ED to see a psychiatrist unless it is an emergency. Pt. denies suicidal and homicidal ideations at this time and adamantly stated, " I am not going to say I am suicidal, I just want to speak with a psychiatrist." GILBERTO gave pt. the following homeless resources/mental health clinics/health clinics referrals that pt. accepted: [facility] located at [address] [facility] ; [place], [address], [place] ; [facility] [place], [address], [place] ; [facility] Homeless Resource Directory which includes food stamps, transitional housing, showers and hot meals etc; Mental Health clinics such as [facility], [id number] [place] [address], Ronni Castrejon. [facility] ; [facility] ; Health clinics;[facility] and Alcohol treatment centers such as [facility], ; [facility] Substance Abuse Hotline and [facility] . Homeless waiver form was signed by the pt. and placed pt's chart. GILBERTO updated ANDRE Brock regarding pt's discharge plan.
--- NOTE | 2018-08-25 16:00 | NUR ---
PT DENIES SI OR HI AT THIS TIME.
--- NOTE | 2018-08-25 16:00 | NUR ---
PT STATED: "I'M NOT GOING TO SAY I'M SUICIDAL. I HAVE CHANTING VOICES THAT ARE BOTHERING ME."
[2018-08-25 16:03] LABS: ALANINE AMINOTRANSFERASE 39 U/L (12-78); ALBUMIN 3.6 g/dL (3.4-5.0); ALKALINE PHOSPHATASE 118 U/L (46-116); ASPARTATE AMINOTRANSFERASE 19 U/L (15-37); BILIRUBIN,DIRECT 0.1 mg/dL (0.0-0.2); BILIRUBIN,TOTAL 0.5 mg/dL (0.2-1.0); SALICYLATE 4.1 mg/dL (2.8-20.0)
[2018-08-25 16:05] LABS: ACETAMINOPHEN < 2 ug/ml (10-30); ALCOHOL, BLOOD < 3 mg/dL (0-0)
[2018-08-25 16:06] LABS: BACTERIA,URINE None seen /HPF (None Seen); WBC,URINE 0-2 /HPF (0-3)
[2018-08-25 16:07] LABS: SQUAMOUS EPITHELIAL CELL,UR Few /HPF (None Seen)
--- NOTE | 2018-08-25 16:36 | NUR ---
PT APPEARS TO BE RESTING COMFORTABLY. NO S/S OF PAIN OR DISTRESS.
--- NOTE | 2018-08-25 16:42 | NUR ---
CALLED MARIO RE: WRIST XRAY. RADIOLOGIST TO READ.
--- NOTE | 2018-08-25 16:51 | NUR ---
PT IS SNORING LOUDLY. NO S/S OF PAIN OR DISTRESS NOTED.
--- NOTE | 2018-08-25 17:05 | NUR ---
RANDYY, CURB SUPERVISOR IS COMING IN TO EVALUATE THE PT.
[2018-08-25 17:40] VITALS: BP 134/87
--- NOTE | 2018-08-25 17:40 | NUR ---
PT IS SLEEPING SOUNDLY WITH NO S/S OF PAIN OR DISTRESS.
--- NOTE | 2018-08-25 18:22 | NUR ---
PT DOES NOT WANT TO STAY. PT ELOPED FROM THE ER.
== END 2018-08-25 18:32 | disposition left against medical advice (07) ==
LOC: ER 13:14
DX: F29 Unspecified psychosis not due to a substance or known physiological condition (principal); M25.532 Pain in left wrist; F20.9 Schizophrenia, unspecified; F31.9 Bipolar disorder, unspecified; I10 Essential (primary) hypertension; J45.909 Unspecified asthma, uncomplicated; F17.200 Nicotine dependence, unspecified, uncomplicated; Z59.0 Homelessness; Z60.2 Problems related to living alone; Z88.8 Allergy status to other drugs, medicaments and biological substances
CPT/HCPCS: 36415; 73110; 80048; 80076; 80307; 81001; 85025; 99284; G0480; 80305; 81000-TC

== ENCOUNTER 2018-08-26 12:54 | Emergency (ER) | payer OTHER ==
[~2018-08-26] VITALS: Ht 180.3 cm; Wt 181.4 kg
[2018-08-26 13:14] VITALS: BP 154/71
[2018-08-26 14:12] LABS: BASOPHILS # (AUTO) 0.1 /CMM (0.0-0.2); BASOPHILS % (AUTO) 0.5 % (0.0-2.0); EOSINOPHILS % (AUTO) 2.9 % (0.0-6.0); HEMATOCRIT 43 % (39-51); HEMOGLOBIN 14.3 g/dL (13.5-17.5); LYMPHOCYTES % (AUTO) 19.2 % (20.0-44.0); MEAN CORPUSCULAR HGB CONC 33 g/dl (31.0-36.0); MEAN CORPUSCULAR VOLUME 83 fL (80-96); MONOCYTES # (AUTO) 0.9 /CMM (0.1-1.30); MONOCYTES % (AUTO) 8.9 % (2.0-12.0); NEUTROPHILS # (AUTO) 7.1 /CMM (1.8-8.9); NEUTROPHILS % (AUTO) 68.5 % (43.0-81.0); PLATELET COUNT (AUTO) 173 /CMM (150-450); RED BLOOD CELL COUNT(AUTO) 5.22 MIL/uL (4.5-6.0); WHITE BLOOD COUNT (AUTO) 10.4 K/uL (4.3-11.0)
[2018-08-26 14:21] LABS: CALCIUM, SERUM 8.5 mg/dL (8.5-10.1); CARBON DIOXIDE 30 mmol/L (21-32); CHLORIDE 105 mmol/L (98-107); CREATININE 1.1 mg/dL (0.6-1.3); GLUCOSE 111 mg/dL (74-106); POTASSIUM 4.4 mmol/L (3.5-5.1); SODIUM SERUM 139 mmol/L (136-145); UREA NITROGEN, BLOOD 10 mg/dL (7-18)
[2018-08-26 14:28] LABS: ALANINE AMINOTRANSFERASE 35 U/L (12-78); ALBUMIN 3.3 g/dL (3.4-5.0); ALCOHOL, BLOOD < 3 mg/dL (0-0); ALKALINE PHOSPHATASE 112 U/L (46-116); ASPARTATE AMINOTRANSFERASE 19 U/L (15-37); BILIRUBIN,DIRECT 0.1 mg/dL (0.0-0.2); BILIRUBIN,TOTAL 0.4 mg/dL (0.2-1.0); TOTAL PROTEIN, SERUM 6.6 g/dL (6.4-8.2)
--- NOTE | 2018-08-26 15:15 | NUR ---
Social service consult requested by ANDRE Hannon due to pt. being homeless. Pt. is a 43 year old male who came to [facility] complaining of arthritis. Pt. was seen by GILBERTO yesterday evening. Pt. wanted to see a psychiatrist yesterday but eloped before the psychiatrist could see him. Pt. appears to be malingering at the hospital on a daily basis. GILBERTO met with pt. bedside. Pt. is alert and oriented x 4. Pt. appears disheveled. Pt is ambulatory. Pt. has his belongings bedside. Pt. is manipulative. Pt. states he has been homeless for the past 5 years. GILBERTO offered pt. [facility] placement, however pt. declined stating, " I don't go there." Pt. receives $1015 in [employer] monies per month and informed GILBERTO he is waiting to get his monthly check on August 31, 2018. Pt. denies suicidal and homicidal ideations and visual/auditory hallucinations at this time. When asked if he is suicidal, pt. adamantly stated, " I am not." GILBERTO encouraged pt. to see a psychiatrist at [facility] and gave him referrals to [facility] and other mental health facilities. Pt. informed GILBERTO, " I will leave now." Pt. was given a sandwich and a drink. Pt. appears to come to the ED to get food and some sleep. GILBERTO gave pt. the following homeless resources/mental health clinics/health clinics referrals that pt. accepted: [facility] located at [address] [place] [address] ; [facility], [address] [place] [address], [place] ; [facility] [place], [address] [facility], [place]. [place] ; [facility] Homeless Resource Directory which includes food stamps, transitional housing, showers and hot meals etc; Mental Health clinics such as [facility], [address] [facility] Cash. [facility] ; [facility] ; Health clinics;[facility] and Alcohol treatment centers such as [facility], ; [facility] Substance Abuse Hotline and [facility] . Homeless waiver form was signed by the pt. and placed pt's chart. Pt's RN Riddhi has been updated with pt's discharge plan.
== END 2018-08-26 14:59 | disposition home or self-care (01) ==
LOC: ER 13:10
DX: F29 Unspecified psychosis not due to a substance or known physiological condition (principal); M17.12 Unilateral primary osteoarthritis, left knee; I10 Essential (primary) hypertension; J45.909 Unspecified asthma, uncomplicated; F20.9 Schizophrenia, unspecified; F17.200 Nicotine dependence, unspecified, uncomplicated; Z60.2 Problems related to living alone; Z59.0 Homelessness; Z88.8 Allergy status to other drugs, medicaments and biological substances
CPT/HCPCS: 36415; 80048-TC; 80076-TC; 85025-TC; G0480

== ENCOUNTER 2018-08-27 05:36 | Emergency (ER) | payer OTHER ==
[~2018-08-27] VITALS: Ht 180.3 cm; Wt 181.4 kg
--- NOTE | 2018-08-27 06:00 | NUR ---
BIBS FOR C/O SOB X1 DAY. PMH : ASTHMA. SATTING 98% ON R/A.
[2018-08-27] MEDS ORDERED: predniSONE 20 MG TABLET ONE (06:12)
[2018-08-27] MEDS ORDERED: AZITHROMYCIN 250 MG TABLET ONE (06:17)
[2018-08-27] MEDS ORDERED: ALBUTEROL FS 2.5 MG/0.5 ML VIAL.NEB ONE (06:22)
[2018-08-27] MEDS ORDERED: AZITHROMYCIN 250 MG TABLET PO ONE (06:30)
[2018-08-27] MEDS ORDERED: predniSONE 20 MG TABLET PO ONE (06:30)
[2018-08-27] MEDS ORDERED: ALBUTEROL FS 2.5 MG/0.5 ML VIAL.NEB NEB ONE (06:30)
[2018-08-27] MEDS ORDERED: ALBUTEROL FS 2.5 MG/3 ML VIAL.NEB CONTNEB ONE (06:30)
[2018-08-27] MEDS ORDERED: IPRATROPIUM NEB FS 0.5 MG/2.5 ML AMPUL.NEB NEB ONE (06:30)
[2018-08-27 06:44] VITALS: BP 161/79
--- NOTE | 2018-08-27 07:22 | NUR ---
Patient given Rx and written and verbal discharge instructions. Patient verbalizes understanding of instructions. Patient is ambulatory with steady gait. Refuses offer of group home placement, and snacks. pt has proper clothing on.
== END 2018-08-27 07:25 | disposition home or self-care (01) ==
LOC: ER 05:40
DX: J45.901 Unspecified asthma with (acute) exacerbation (principal); F17.200 Nicotine dependence, unspecified, uncomplicated; E66.01 Morbid (severe) obesity due to excess calories; F20.9 Schizophrenia, unspecified; I10 Essential (primary) hypertension; Z88.8 Allergy status to other drugs, medicaments and biological substances; Z60.2 Problems related to living alone; Z79.899 Other long term (current) drug therapy; Z68.43 Body mass index [BMI] 50.0-59.9, adult
CPT/HCPCS: 71045; 93005; 94640 ×2; 99284; 99406; J7512

== ENCOUNTER 2018-08-29 02:56 | Emergency (ER) | payer OTHER ==
[~2018-08-29] VITALS: Ht 180.3 cm; Wt 181.4 kg
--- NOTE | 2018-08-29 03:39 | NUR ---
PT BIBSELF FROM [facility] C/O +SI/-HI HEARING VOICES TELLING HIM TO TAKE ALL HIS MEDICATION. NAD NOTED. RESP EVEN AND UNLABORED. PT DENIES PAIN AT THIS TIME. PT IN BED 6. WILL CONTINUE TO MONITOR.
--- NOTE | 2018-08-29 03:40 | NUR ---
PT IN BED 6 IN A GOWN. ALL BELONGINGS TAKEN AND STORED AWAY FROM THE PATIENT.
--- NOTE | 2018-08-29 03:50 | NUR ---
PHLEB AT BEDSIDE FOR LAB DRAW
[2018-08-29 04:04] LABS: BASOPHILS # (AUTO) 0.1 /CMM (0.0-0.2); BASOPHILS % (AUTO) 0.5 % (0.0-2.0); EOSINOPHILS % (AUTO) 1.9 % (0.0-6.0); HEMATOCRIT 43 % (39-51); HEMOGLOBIN 14.4 g/dL (13.5-17.5); LYMPHOCYTES # (AUTO) 3.1 /CMM (0.8-4.8); LYMPHOCYTES % (AUTO) 23.1 % (20.0-44.0); MEAN CORPUSCULAR HGB CONC 33 g/dl (31.0-36.0); MEAN CORPUSCULAR VOLUME 83 fL (80-96); MONOCYTES % (AUTO) 7.9 % (2.0-12.0); NEUTROPHILS # (AUTO) 8.8 /CMM (1.8-8.9); NEUTROPHILS % (AUTO) 66.6 % (43.0-81.0); PLATELET COUNT (AUTO) 169 /CMM (150-450); RED BLOOD CELL COUNT(AUTO) 5.21 MIL/uL (4.5-6.0); WHITE BLOOD COUNT (AUTO) 13.2 K/uL (4.3-11.0)
[2018-08-29 04:05] LABS: CARBON DIOXIDE 30 mmol/L (21-32); CHLORIDE 104 mmol/L (98-107); GLUCOSE 127 mg/dL (74-106); POTASSIUM 3.6 mmol/L (3.5-5.1); SODIUM SERUM 140 mmol/L (136-145); UREA NITROGEN, BLOOD 10 mg/dL (7-18)
--- NOTE | 2018-08-29 04:06 | NUR ---
PT WAS WANDED BY SECURITY.
[2018-08-29 04:12] LABS: ALANINE AMINOTRANSFERASE 51 U/L (12-78); ALBUMIN 3.5 g/dL (3.4-5.0); ALCOHOL, BLOOD < 3 mg/dL (0-0); ALKALINE PHOSPHATASE 117 U/L (46-116); ASPARTATE AMINOTRANSFERASE 20 U/L (15-37); BILIRUBIN,TOTAL 0.3 mg/dL (0.2-1.0); SALICYLATE 4.2 mg/dL (2.8-20.0)
--- NOTE | 2018-08-29 04:13 | NUR ---
FADIA, AT BEDSIDE FOR PSYCH EVAL
[2018-08-29 04:16] LABS: ACETAMINOPHEN 0 ug/ml (10-30)
--- NOTE | 2018-08-29 04:17 | NUR ---
URINE COLLECTED AND SENT TO LAB
[2018-08-29 04:22] LABS: APPEARANCE,URINE Clear (CLEAR); BILIRUBIN,URINE Negative (NEGATIVE); BLOOD, URINE Negative Ery/uL (NEGATIVE); COLOR,URINE Yellow (YELLOW); KETONES,URINE Negative (NEGATIVE); LEUKOCYTE ESTERASE ,URINE Negative (NEGATIVE); NITRITE, URINE Negative (NEGATIVE); PROTEIN,URINE Negative (NEGATIVE); UGLUCOSE Negative (NEGATIVE); UROBILINOGEN,URINE 0.2 EU/dL (0.2)
--- NOTE | 2018-08-29 06:20 | NUR ---
PT ACCEPTED TO [facility] BY DR HIDALGO. # FOR REPORT [phone]
--- NOTE | 2018-08-29 07:19 | NUR ---
REPORT GIVEN TO ANDRE CAUDRA AT [facility] FOR [facility]A
--- NOTE | 2018-08-29 07:19 | NUR ---
REPORT GIVEN TO ANDRE MCKEON FOR EVA
--- NOTE | 2018-08-29 08:25 | NUR ---
PATIENT CHANGED HIS MIND AND DECIDED HE WANTS TO BE DISCHARGED. DR. DEAN AWARE. PATIENT DENIES SI/HI. [facility] MADE AWARE. PATIENT DISCHARGED IN STABLE CONDITION. DISCHARGE INSTRUCTIONS PROVIDED AND VERBALIZED UNDERSTANDING. DISCHARGE CHECKLIST SIGNED.
[2018-08-29 08:27] VITALS: BP 142/86
== END 2018-08-29 08:27 | disposition home or self-care (01) ==
LOC: ER 02:58
DX: R45.851 Suicidal ideations (principal); F20.9 Schizophrenia, unspecified; I10 Essential (primary) hypertension; J45.909 Unspecified asthma, uncomplicated; F17.200 Nicotine dependence, unspecified, uncomplicated; Z60.2 Problems related to living alone; Z88.8 Allergy status to other drugs, medicaments and biological substances
CPT/HCPCS: 36415; 80048; 80076; 80307; 81001; 85025; 99284; G0480; 80305; 81000-TC

== ENCOUNTER 2018-08-29 21:10 | Emergency (ER) | payer OTHER ==
--- NOTE | 2018-08-29 22:00 | NUR ---
PATIENT REFUSED TO BE TRIAGED.
== END 2018-08-29 22:01 | disposition left against medical advice (07) ==
LOC: ER 21:21
DX: Z53.21 Procedure and treatment not carried out due to patient leaving prior to being seen by health care provider (principal)

== ENCOUNTER 2018-09-03 22:09 | Emergency (ER) | payer OTHER ==
[~2018-09-03] VITALS: Ht 180.3 cm; Wt 190.5 kg
[2018-09-03 22:53] VITALS: BP 149/82
== END 2018-09-03 23:24 | disposition home or self-care (01) ==
LOC: ER 22:12
DX: R00.2 Palpitations (principal); I48.91 Unspecified atrial fibrillation; J45.909 Unspecified asthma, uncomplicated; I10 Essential (primary) hypertension; F20.9 Schizophrenia, unspecified; F17.200 Nicotine dependence, unspecified, uncomplicated; Z60.2 Problems related to living alone; Z76.0 Encounter for issue of repeat prescription; Z88.8 Allergy status to other drugs, medicaments and biological substances

== ENCOUNTER → 2018-09-03 | Emergency (ER) | payer OTHER ==
[~2018-09-03] VITALS: Ht 180.3 cm; Wt 181.4 kg
[2018-09-03 15:36] VITALS: BP 136/66
--- NOTE | 2018-09-03 16:21 | NUR ---
UNABLE TO DEPART PT FROM [facility] AT THIS TIME
== END | disposition home or self-care (01) ==
LOC: ER 15:27
DX: R00.2 Palpitations (principal); I10 Essential (primary) hypertension; J45.909 Unspecified asthma, uncomplicated; F20.9 Schizophrenia, unspecified; F17.200 Nicotine dependence, unspecified, uncomplicated; Z60.2 Problems related to living alone; Z88.8 Allergy status to other drugs, medicaments and biological substances

== ENCOUNTER 2018-09-04 13:59 | Emergency (ER) | payer OTHER ==
[~2018-09-04] VITALS: Ht 180.3 cm; Wt 191.4 kg
[2018-09-04] MEDS ORDERED: IPRATROPIUM NEB FS 0.5 MG/2.5 ML AMPUL.NEB ONE (14:22)
[2018-09-04] MEDS ORDERED: ALBUTEROL FS 2.5 MG/3 ML VIAL.NEB ONE (14:22)
[2018-09-04 14:26] VITALS: BP 157/67
--- NOTE | 2018-09-04 14:26 | NUR ---
PT BIBSELF FOR HEARING ENCHANTING VOICES, DENIES SI/HI; PT AAOX4, PT ON MONITOR, VSS, PENDING MD RENE
[2018-09-04] MEDS ORDERED: IPRATROPIUM NEB FS 0.5 MG/2.5 ML AMPUL.NEB NEB ONE (14:30)
[2018-09-04] MEDS ORDERED: ALBUTEROL FS 2.5 MG/3 ML VIAL.NEB NEB ONE (14:30)
[2018-09-04 14:45] LABS: BASOPHILS # (AUTO) 0.1 /CMM (0.0-0.2); BASOPHILS % (AUTO) 0.5 % (0.0-2.0); EOSINOPHILS % (AUTO) 1.9 % (0.0-6.0); HEMATOCRIT 44 % (39-51); LYMPHOCYTES # (AUTO) 2.3 /CMM (0.8-4.8); LYMPHOCYTES % (AUTO) 19.2 % (20.0-44.0); MEAN CORPUSCULAR HGB CONC 32 g/dl (31.0-36.0); MEAN CORPUSCULAR VOLUME 83 fL (80-96); MONOCYTES # (AUTO) 0.9 /CMM (0.1-1.30); MONOCYTES % (AUTO) 7.4 % (2.0-12.0); NEUTROPHILS # (AUTO) 8.6 /CMM (1.8-8.9); PLATELET COUNT (AUTO) 172 /CMM (150-450); RED BLOOD CELL COUNT(AUTO) 5.25 MIL/uL (4.5-6.0); WHITE BLOOD COUNT (AUTO) 12.1 K/uL (4.3-11.0)
[2018-09-04 14:51] LABS: CARBON DIOXIDE 30 mmol/L (21-32); CHLORIDE 105 mmol/L (98-107); CREATININE 1.1 mg/dL (0.6-1.3); GLUCOSE 177 mg/dL (74-106); POTASSIUM 4.1 mmol/L (3.5-5.1); SODIUM SERUM 140 mmol/L (136-145); UREA NITROGEN, BLOOD 12 mg/dL (7-18)
[2018-09-04 14:57] LABS: ALANINE AMINOTRANSFERASE 35 U/L (12-78); ALBUMIN 3.2 g/dL (3.4-5.0); ALCOHOL, BLOOD < 3 mg/dL (0-0); ALKALINE PHOSPHATASE 109 U/L (46-116); ASPARTATE AMINOTRANSFERASE 12 U/L (15-37); BILIRUBIN,DIRECT 0.1 mg/dL (0.0-0.2); BILIRUBIN,TOTAL 0.3 mg/dL (0.2-1.0); SALICYLATE 3.2 mg/dL (2.8-20.0); TOTAL PROTEIN, SERUM 6.5 g/dL (6.4-8.2)
[2018-09-04 16:27] LABS: APPEARANCE,URINE Clear (CLEAR); BILIRUBIN,URINE Negative (NEGATIVE); BLOOD, URINE Large Ery/uL (NEGATIVE); COLOR,URINE Yellow (YELLOW); PROTEIN,URINE Negative (NEGATIVE); UGLUCOSE Negative (NEGATIVE)
[2018-09-04 16:28] LABS: KETONES,URINE Negative (NEGATIVE); LEUKOCYTE ESTERASE ,URINE Negative (NEGATIVE); NITRITE, URINE Negative (NEGATIVE); UROBILINOGEN,URINE 0.2 EU/dL (0.2)
[2018-09-04 16:29] LABS: BACTERIA,URINE None seen /HPF (None Seen); SQUAMOUS EPITHELIAL CELL,UR Few /HPF (None Seen); WBC,URINE 0-2 /HPF (0-3)
[2018-09-04 16:58] LABS: ACETAMINOPHEN 0 ug/ml (10-30)
--- NOTE | 2018-09-04 19:16 | NUR ---
Patient given written and verbal discharge instructions. Patient verbalizes understanding of instructions. Patient is ambulatory with steady gait. Refuses offer of retirement placement. Patient given list of available shelters in surrounding area.
[2018-09-05] MEDS ORDERED: OLANZAPINE 5 MG TABLET ONE (02:17)
== END 2018-09-04 19:20 | disposition home or self-care (01) ==
LOC: ER 14:02
DX: F29 Unspecified psychosis not due to a substance or known physiological condition (principal); I10 Essential (primary) hypertension; J45.909 Unspecified asthma, uncomplicated; F20.9 Schizophrenia, unspecified; F17.200 Nicotine dependence, unspecified, uncomplicated; F10.10 Alcohol abuse, uncomplicated; E66.01 Morbid (severe) obesity due to excess calories; Y90.0 Blood alcohol level of less than 20 mg/100 ml; Z60.2 Problems related to living alone; Z88.8 Allergy status to other drugs, medicaments and biological substances; Z59.0 Homelessness
CPT/HCPCS: 36415; 73630 ×2; 80048; 80076; 80307; 81001; 85025; 94644; 99285; G0480; 80305; 81000-TC

== ENCOUNTER 2018-09-05 01:40 | Emergency (ER) | payer OTHER ==
[~2018-09-05] VITALS: Ht 180.3 cm; Wt 191.4 kg
[2018-09-05 01:47] VITALS: BP 155/91
--- NOTE | 2018-09-05 02:22 | NUR ---
JUSTENDelroyElvira WALKED IN TO ER. AAOX4. NAD, BREATHING EVEN AND UNLABORED. AMBULATORY. C/O BILAT LEG PAIN W/O PAIN. PT STATES THAT IT IS BECAUSE OF HIS CHF. PT ALSO COMPLAINS OF HEARING VOICES BUT NO SUICIDAL THOUGHT. PT CLAIMS HE HAVENT BEEN TAKING HIS PHYSCH MEDS. TO ER 10. AT BED SIDE.
[2018-09-05 02:27] LABS: BASOPHILS # (AUTO) 0.4 /CMM (0.0-0.2); BASOPHILS % (AUTO) 2.9 % (0.0-2.0); EOSINOPHILS % (AUTO) 2.8 % (0.0-6.0); HEMATOCRIT 44 % (39-51); HEMOGLOBIN 14.4 g/dL (13.5-17.5); LYMPHOCYTES # (AUTO) 1.6 /CMM (0.8-4.8); LYMPHOCYTES % (AUTO) 11.8 % (20.0-44.0); MEAN CORPUSCULAR HGB CONC 32 g/dl (31.0-36.0); MEAN CORPUSCULAR VOLUME 83 fL (80-96); MONOCYTES # (AUTO) 0.8 /CMM (0.1-1.30); MONOCYTES % (AUTO) 5.7 % (2.0-12.0); NEUTROPHILS # (AUTO) 10.2 /CMM (1.8-8.9); NEUTROPHILS % (AUTO) 76.8 % (43.0-81.0); PLATELET COUNT (AUTO) 177 /CMM (150-450); RED BLOOD CELL COUNT(AUTO) 5.37 MIL/uL (4.5-6.0); WHITE BLOOD COUNT (AUTO) 13.2 K/uL (4.3-11.0)
[2018-09-05 02:29] LABS: CALCIUM, SERUM 8.5 mg/dL (8.5-10.1); CARBON DIOXIDE 32 mmol/L (21-32); CHLORIDE 105 mmol/L (98-107); CREATININE 1.2 mg/dL (0.6-1.3); GLUCOSE 134 mg/dL (74-106); POTASSIUM 4.4 mmol/L (3.5-5.1); SODIUM SERUM 143 mmol/L (136-145); UREA NITROGEN, BLOOD 14 mg/dL (7-18)
[2018-09-05] MEDS ORDERED: OLANZAPINE 5 MG TABLET PO ONE (02:30)
[2018-09-05 02:35] LABS: ALANINE AMINOTRANSFERASE 34 U/L (12-78); ALBUMIN 3.3 g/dL (3.4-5.0); ALCOHOL, BLOOD < 3 mg/dL (0-0); ALKALINE PHOSPHATASE 112 U/L (46-116); ASPARTATE AMINOTRANSFERASE 10 U/L (15-37); BILIRUBIN,DIRECT 0.1 mg/dL (0.0-0.2); BILIRUBIN,TOTAL 0.3 mg/dL (0.2-1.0); TOTAL PROTEIN, SERUM 6.8 g/dL (6.4-8.2)
[2018-09-05 03:01] LABS: BAND % (MANUAL) 1 % (0.0-5.0); EOSINOPHILS % (MANUAL) 1 % (0-4); LYMPHOCYTES % (MANUAL) 27 % (16-48); MONOCYTES % (MANUAL) 2 % (0-11.0); NEUTROPHILS % (MANUAL) 69 (42-76)
[2018-09-05 03:11] LABS: SALICYLATE 2.9 mg/dL (2.8-20.0)
--- NOTE | 2018-09-05 03:30 | NUR ---
MESSAGE LEFT FOR ON-CALL CLINICIAN
--- NOTE | 2018-09-05 03:36 | NUR ---
SPOKE WITH FADIA, ON HIS WAY.
--- NOTE | 2018-09-05 04:52 | NUR ---
Jerome benitez in [facility] [place] - 09/05/18 at 0453 by RAPHAEL Patient discharged to home in stable condition. Written and verbal after care instructions given. Patient verbalizes understanding of instruction. Pt ambulatory with a steady gait
--- NOTE | 2018-09-05 04:55 | NUR ---
Patient does not wish to proceed with medical care recommended by Dr. Luis Parra. Patient given information related to possible complications, up to and including , which could occur as a result of leaving the hospital at this time. Patient verbalizes understanding of risks involved due to leaving against medical advice. Patient has signed AMA form. Pt ambulatory with a steady gait
== END 2018-09-05 04:57 | disposition left against medical advice (07) ==
LOC: ER 01:43
DX: F20.9 Schizophrenia, unspecified (principal); F17.200 Nicotine dependence, unspecified, uncomplicated; I10 Essential (primary) hypertension; J45.909 Unspecified asthma, uncomplicated; Z76.5 Malingerer [conscious simulation]; Z59.0 Homelessness; Z88.8 Allergy status to other drugs, medicaments and biological substances; Z60.2 Problems related to living alone; Z79.899 Other long term (current) drug therapy
CPT/HCPCS: 36415; 80048; 80076; 80307; 85025; 99284; G0480; 80305

== ENCOUNTER 2018-09-08 00:08 | Emergency (ER) | payer OTHER ==
[~2018-09-08] VITALS: Ht 172.7 cm; Wt 181.4 kg
--- NOTE | 2018-09-08 00:15 | NUR ---
PT [id number] FROM STREETS C/C HEARING VOICES, -SI, -HI, "ITS DANGEROUS FOR ME TO BE IN SOCIETY" "VOICES ARE TELLING ME EVERYTHING". PT BELONGINGS TAKEN AND STORED AWAY FROM PT ROOM. PT IN GOWN IN BED 6 WAITING TO BE WANDED BY SECURITY.
--- NOTE | 2018-09-08 00:18 | NUR ---
SECURITY AT BEDSIDE TO FROYLAN GARCIA
[2018-09-08] MEDS ORDERED: ALBUTEROL FS 2.5 MG/3 ML VIAL.NEB ONE ×2 (01:48→13:46)
[2018-09-08] MEDS ORDERED: IPRATROPIUM NEB FS 0.5 MG/2.5 ML AMPUL.NEB ONE (01:48)
--- NOTE | 2018-09-08 01:48 | NUR ---
RT AT BEDSIDE FOR BREATHIGN TREATMENT
[2018-09-08 01:55] LABS: BASOPHILS # (AUTO) 0.1 /CMM (0.0-0.2); BASOPHILS % (AUTO) 0.5 % (0.0-2.0); EOSINOPHILS % (AUTO) 1.4 % (0.0-6.0); HEMATOCRIT 46 % (39-51); HEMOGLOBIN 15.2 g/dL (13.5-17.5); LYMPHOCYTES # (AUTO) 2.4 /CMM (0.8-4.8); LYMPHOCYTES % (AUTO) 16.9 % (20.0-44.0); MEAN CORPUSCULAR HGB CONC 33 g/dl (31.0-36.0); MEAN CORPUSCULAR VOLUME 83 fL (80-96); NEUTROPHILS # (AUTO) 10.5 /CMM (1.8-8.9); NEUTROPHILS % (AUTO) 74.2 % (43.0-81.0); PLATELET COUNT (AUTO) 210 /CMM (150-450); RED BLOOD CELL COUNT(AUTO) 5.55 MIL/uL (4.5-6.0); WHITE BLOOD COUNT (AUTO) 14.1 K/uL (4.3-11.0)
[2018-09-08] MEDS ORDERED: IPRATROPIUM NEB FS 0.5 MG/2.5 ML AMPUL.NEB NEB ONE (02:00)
[2018-09-08] MEDS ORDERED: ALBUTEROL FS 2.5 MG/0.5 ML VIAL.NEB NEB ONE ×2 (02:00→10:00)
[2018-09-08 02:05] LABS: CALCIUM, SERUM 8.8 mg/dL (8.5-10.1); CARBON DIOXIDE 30 mmol/L (21-32); CHLORIDE 103 mmol/L (98-107); CREATININE 1.2 mg/dL (0.6-1.3); GLUCOSE 116 mg/dL (74-106); POTASSIUM 3.7 mmol/L (3.5-5.1); SODIUM SERUM 140 mmol/L (136-145); UREA NITROGEN, BLOOD 14 mg/dL (7-18)
[2018-09-08 02:11] LABS: ACETAMINOPHEN 0 ug/ml (10-30); ALANINE AMINOTRANSFERASE 34 U/L (12-78); ALBUMIN 3.5 g/dL (3.4-5.0); ALCOHOL, BLOOD < 3 mg/dL (0-0); ALKALINE PHOSPHATASE 126 U/L (46-116); ASPARTATE AMINOTRANSFERASE 16 U/L (15-37); BILIRUBIN,DIRECT 0.1 mg/dL (0.0-0.2); BILIRUBIN,TOTAL 0.6 mg/dL (0.2-1.0); SALICYLATE 3.1 mg/dL (2.8-20.0); TOTAL PROTEIN, SERUM 7.3 g/dL (6.4-8.2)
--- NOTE | 2018-09-08 02:11 | NUR ---
URINE COLLECTED AND SENT TO LAB
[2018-09-08 02:22] LABS: APPEARANCE,URINE CLEAR (CLEAR); BILIRUBIN,URINE NEGATIVE (NEGATIVE); BLOOD, URINE NEGATIVE Ery/uL (NEGATIVE); COLOR,URINE YELLOW (YELLOW); KETONES,URINE NEGATIVE (NEGATIVE); LEUKOCYTE ESTERASE ,URINE NEGATIVE (NEGATIVE); NITRITE, URINE NEGATIVE (NEGATIVE); PROTEIN,URINE NEGATIVE (NEGATIVE); UGLUCOSE NEGATIVE (NEGATIVE); UROBILINOGEN,URINE 0.2 EU/dL (0.2)
--- NOTE | 2018-09-08 04:12 | NUR ---
PT GIVEN SANDWICH, JUICE, AND WATER.
--- NOTE | 2018-09-08 08:16 | NUR ---
shania ramirez at bedside
[2018-09-08] MEDS ORDERED: BENAZEPRIL HCL 10 MG TABLET PO ONE (09:00)
[2018-09-08] MEDS ORDERED: BENAZEPRIL HCL 10 MG TABLET ONE (09:49)
[2018-09-08] MEDS ORDERED: ALBUTEROL FS 2.5 MG/0.5 ML VIAL.NEB ONE (10:02)
--- NOTE | 2018-09-08 10:07 | NUR ---
rt at bedside for breathing treatment.
--- NOTE | 2018-09-08 10:59 | NUR ---
CALL FROM MICHAEL GARCIA, ACCEPTED BY DR GARCIA AT [facility],REPORT TO [phone], SHE IS SENDING AMBULANCE FOR [place].
[2018-09-08] MEDS ORDERED: METOPROLOL TARTRATE 25 MG TABLET PO ONE (11:00)
[2018-09-08] MEDS ORDERED: METOPROLOL TARTRATE 25 MG TABLET ONE (12:55)
--- NOTE | 2018-09-08 13:15 | NUR ---
REPORT GIVEN TO CYDNEY POWELL.
--- NOTE | 2018-09-08 13:19 | NUR ---
PER JA AT [facility] SHOULD BE ARRIVING ANY MINUTE NOW.
[2018-09-08] MEDS ORDERED: ALBUTEROL FS 2.5 MG/3 ML VIAL.NEB NEB ONE (13:30)
--- NOTE | 2018-09-08 13:50 | NUR ---
[facility] ETA 1600
[2018-09-08 15:35] VITALS: BP 131/61
--- NOTE | 2018-09-08 15:40 | NUR ---
REPORT GIVEN TO KIM[facility]LY EMT. [facility] TRANSFER PAPERWORK IS IN THE CHART. COPY OF ALL LABS, IMAGING FINDINGS, AND ALL REPORTS GIVEN TO EMT FOR TRANSPORT WITH THE PT.
== END 2018-09-08 15:45 ==
LOC: ER 00:15
DX: F20.9 Schizophrenia, unspecified (principal); J45.909 Unspecified asthma, uncomplicated; R45.851 Suicidal ideations; I10 Essential (primary) hypertension; F17.200 Nicotine dependence, unspecified, uncomplicated; Z60.2 Problems related to living alone; Z88.8 Allergy status to other drugs, medicaments and biological substances
CPT/HCPCS: 36415; 80048; 80076; 80307; 81001; 85025; 94640; 94644; 99285; G0480; J7030; 80305; 81000-TC

== ENCOUNTER 2018-09-27 18:58 | Emergency (ER) | payer OTHER ==
[~2018-09-27] VITALS: Ht 180.3 cm; Wt 190.5 kg
--- NOTE | 2018-09-27 19:15 | NUR ---
PT TO ER C/O AUDITORY HALUCINATIONS. NO SIGNS OF DISTRESS NOTED. PT VITAL SIGNS STABLE. PT DENIES SI/HI. PT TO ER BED
--- NOTE | 2018-09-27 21:30 | NUR ---
PT OK TO DISCHARGE PER DR GRANADOS. Patient given written and verbal discharge instructions. Patient verbalizes understanding of instructions. Patient is ambulatory with steady gait. Refuses offer of snf placement. Patient given list of available shelters in surrounding area.
[2018-09-28 03:22] VITALS: BP 144/82
== END 2018-09-28 03:23 | disposition home or self-care (01) ==
LOC: ER 19:00
DX: R44.0 Auditory hallucinations (principal); I10 Essential (primary) hypertension; I48.91 Unspecified atrial fibrillation; F17.200 Nicotine dependence, unspecified, uncomplicated; J45.909 Unspecified asthma, uncomplicated; Z88.8 Allergy status to other drugs, medicaments and biological substances; Z59.0 Homelessness; Z79.899 Other long term (current) drug therapy

== ENCOUNTER 2018-10-30 02:51 | Emergency (ER) | payer OTHER ==
[~2018-10-30 02:51] MED LIST changes: -LOPE-156 PO; +LOPE-195 PO
== END 2018-10-30 02:59 | disposition home or self-care (01) ==
DX: Z53.21 Procedure and treatment not carried out due to patient leaving prior to being seen by health care provider (principal)

== ENCOUNTER 2020-04-14 00:57 | Emergency (ER) | payer OTHER ==
[~2020-04-14] VITALS: Ht 180.3 cm; Wt 190.5 kg
[2020-04-14 00:59] VITALS: BP 124/70
--- NOTE | 2020-04-14 01:11 | NUR ---
DR WOOTEN AT [facility] SIDE
[2020-04-14] MEDS ORDERED: DILT180C93 PO (22:30)
[2020-04-14] MEDS ORDERED: IBUP-1957 PO (22:30)
[2020-04-14] MEDS ORDERED: CLOT15CR27 TP (22:30)
== END 2020-04-14 01:19 | disposition home or self-care (01) ==
LOC: ER 00:59
DX: F15.90 Other stimulant use, unspecified, uncomplicated (principal); I10 Essential (primary) hypertension; I48.91 Unspecified atrial fibrillation; J45.909 Unspecified asthma, uncomplicated; F20.9 Schizophrenia, unspecified; F31.9 Bipolar disorder, unspecified; F10.10 Alcohol abuse, uncomplicated; F17.200 Nicotine dependence, unspecified, uncomplicated; E66.01 Morbid (severe) obesity due to excess calories; Y90.9 Presence of alcohol in blood, level not specified; Z76.5 Malingerer [conscious simulation]; Z59.0 Homelessness; Z88.8 Allergy status to other drugs, medicaments and biological substances; Z79.899 Other long term (current) drug therapy; Z68.43 Body mass index [BMI] 50.0-59.9, adult

== ENCOUNTER 2020-04-14 21:22 | Emergency (ER) | payer OTHER ==
[~2020-04-14] VITALS: Ht 180.3 cm; Wt 190.5 kg
[2020-04-14 22:00] VITALS: BP 149/86
--- NOTE | 2020-04-14 22:15 | NUR ---
[facility] AT BEDSIDE FOR EVALUATION
[2020-04-14] MEDS ORDERED: DILT180C93 PO (22:30)
[2020-04-14] MEDS ORDERED: CLOT15CR27 TP (22:30)
[2020-04-14] MEDS ORDERED: IBUP-1957 PO (22:30)
== END 2020-04-14 22:39 | disposition home or self-care (01) ==
LOC: ER 21:26
DX: M79.18 Myalgia, other site (principal); I10 Essential (primary) hypertension; I48.91 Unspecified atrial fibrillation; J45.909 Unspecified asthma, uncomplicated; F20.9 Schizophrenia, unspecified; F31.9 Bipolar disorder, unspecified; F10.10 Alcohol abuse, uncomplicated; F17.200 Nicotine dependence, unspecified, uncomplicated; E66.01 Morbid (severe) obesity due to excess calories; Y90.9 Presence of alcohol in blood, level not specified; Z76.0 Encounter for issue of repeat prescription; Z68.43 Body mass index [BMI] 50.0-59.9, adult; Z59.0 Homelessness; Z79.899 Other long term (current) drug therapy; Z88.8 Allergy status to other drugs, medicaments and biological substances